=== PATIENT | male | born 1945 | race Caucasian/White ===

== ENCOUNTER 2017-08-02 05:24 | Inpatient (IN) | payer BC, MEDICARE ==
[~2017-08-02 05:24] MED LIST: LACTATED RINGER'S 1,000 ML IV*
[2017-08-02] MEDS: CEFAZOLIN 2 GM/50 ML (PMX) 50 ML IVPB (06:17)
[2017-08-02] MEDS ORDERED: GELATIN SIZE 100 SPONGE (06:56)
[2017-08-02] MEDS ORDERED: THROMBIN 5000 UNIT VIAL (06:56)
[2017-08-02] MEDS ORDERED: EPHEDrine SULFATE 50 MG/5 ML SYG (07:00)
[2017-08-02] MEDS ORDERED: PROPOFOL 200 MG INJ (07:00)
[2017-08-02] MEDS ORDERED: ESMOLOL 100 MG INJ (07:00)
[2017-08-02] MEDS ORDERED: CEFAZOLIN 1 GM INJ (07:00)
[2017-08-02] MEDS ORDERED: PROPOFOL 20 ML (07:18)
[2017-08-02] MEDS ORDERED: ROCURONIUM 50 MG INJ (07:18)
[2017-08-02] MEDS ORDERED: SUCCINYLCHOLINE CHLORIDE 100 MG/5 ML SYG IV (07:18)
[2017-08-02] MEDS ORDERED: HYDROmorphONE 2 MG/ML SYG (07:18)
[2017-08-02] MEDS ORDERED: PHENYLephrine (100 MCG/ML) 5ML SYG (07:30)
[2017-08-02] MEDS ORDERED: VASOPRESSIN 20 UNITS INJ (07:31)
[2017-08-02] MEDS ORDERED: hydrALAzine 20 MG INJ (08:01)
[2017-08-02] MEDS ORDERED: LABETALOL HCL 20MG INJ (08:04)
[2017-08-02] MEDS ORDERED: DEXAMETHASONE 4 MG/ML 1 ML INJ (08:25)
[2017-08-02] MEDS ORDERED: ONDANSETRON 4 MG INJ (08:25)
[2017-08-02] MEDS: POLYMYXIN/BACITRACIN 1L IRRIG (09:14)
[2017-08-02] MEDS: BUPIVACAINE 0.25% (MPF) 30 ML INJ (09:14)
[2017-08-02] MEDS ORDERED: HYDROmorphONE (0.2 MG/ML) 10ML SYG IV (10:30)
[2017-08-02] MEDS ORDERED: hydrALAzine 20 MG INJ IV (10:30)
[2017-08-02] MEDS ORDERED: MEPERIDINE 25 MG INJ IV (10:30)
[2017-08-02] MEDS ORDERED: LABETALOL HCL 20MG INJ IV (10:30)
[2017-08-02] MEDS ORDERED: DIPHENHYDRAMINE 50 MG INJ IV (10:30)
[2017-08-02] MEDS ORDERED: SUGAMMADEX SODIUM 200 MG/2 ML VIAL IV (10:34)
[2017-08-02] MEDS ORDERED: ACETAMINOPHEN 325 MG TAB PO (11:30)
[2017-08-02] MEDS ORDERED: AL HYDROX/MG HYDROX/SIMETH 30 ML CUP PO (11:30)
[2017-08-02] MEDS ORDERED: ZOLPIDEM 5 MG TAB PO (11:30)
[2017-08-02] MEDS ORDERED: PROCHLORPERAZINE 10 MG TAB PO (11:30)
[2017-08-02] MEDS ORDERED: CEPASTAT LOZENGE MT (11:30)
[2017-08-02] MEDS ORDERED: DIAZEPAM 5 MG TAB PO (11:30)
[2017-08-02] MEDS ORDERED: NACL 0.9% 3 ML SYG IV (11:30)
[2017-08-02] MEDS ORDERED: ONDANSETRON 4 MG INJ IV (11:30)
[2017-08-02] MEDS ORDERED: NALOXONE (0.4 MG/ML) INJ IV (11:30)
[2017-08-02] MEDS ORDERED: TRIMETHOBENZAMIDE 100 MG/ML VIAL IM (11:30)
[2017-08-02] MEDS ORDERED: DIAZEPAM 5 MG/ML SYG IM (11:30)
[2017-08-02] MEDS ORDERED: BETHANECHOL 25 MG TAB PO (11:30)
[2017-08-02] MEDS: HYDROmorphONE (0.2 MG/ML) 10ML SYG IV ×3 (11:40→12:02)
[2017-08-02] MEDS: CEFAZOLIN 1 GM/50 ML (PMX) 50 ML IVPB ×2 (11:53→20:35)
[2017-08-02] MEDS: DEXTROSE 5%-0.45% NACL 1,000 ML IV ×2 (11:54→22:43)
[2017-08-02] MEDS: HYDROmorphONE 0.2 MG/ML PCA IV (12:05)
[2017-08-02] MEDS: ONDANSETRON 4 MG INJ IV (12:17)
[2017-08-02 13:47] LABS: TROPONIN-I 0.021 ng/ml (0.000-0.120)
[2017-08-02] MEDS: RANITIDINE 150 MG TAB PO (20:33)
[2017-08-02] MEDS: ATORVASTATIN 40 MG TAB PO (20:33)
[2017-08-03] MEDS: CEFAZOLIN 1 GM/50 ML (PMX) 50 ML IVPB ×2 (03:29→09:18)
[2017-08-03 03:45] LABS: ADD MAN DIFF? NO
[2017-08-03 04:06] LABS: ABNORMAL IP MESSAGE 1; BASOPHILS % 0.1 % (0.0-2.0); HEMATOCRIT 35.1 % (42.0-52.0); LYMPHOCYTES # 0.6 10^3/ul (0.8-2.9); LYMPHOCYTES % 4.6 % (15.0-51.0); MEAN CORPUSCULAR HEMOGLOBIN 32.4 pg (29.0-33.0); MEAN CORPUSCULAR HGB CONC 34.2 g/dl (32.0-37.0); MEAN CORPUSCULAR VOLUME 94.9 fl (82.0-101.0); MEAN PLATELET VOLUME 10.1 fl (7.4-10.4); MONOCYTES % 7.7 % (0.0-11.0); NEUTROPHIL # 10.8 10^3/ul (1.6-7.5); PLATELET COUNT 171 10^3/UL (140-415); POSITIVE DIFF @See below; RED CELL DISTRIBUTION WIDTH 12.2 % (11.5-14.5)
[2017-08-03 04:06] LABS: WHITE BLOOD COUNT 12.4 10^3/ul (4.8-10.8)
[2017-08-03 04:10] LABS: ANION GAP 12 (8-16); BLOOD UREA NITROGEN 19 mg/dl (7-20); CALCIUM 8.1 mg/dl (8.4-10.2); CARBON DIOXIDE 28 mmol/L (21-31); CHLORIDE 105 mmol/L (97-110); CREATININE 0.91 mg/dl (0.61-1.24); GLUCOSE 140 mg/dl (70-220); POTASSIUM 4.1 mmol/L (3.5-5.1); SODIUM 141 mmol/L (135-144)
[2017-08-03] MEDS: BETHANECHOL 25 MG TAB PO (09:18)
[2017-08-03] MEDS: FERROUS SULFATE (EC) 325 MG TAB PO ×3 (09:18→21:29)
[2017-08-03] MEDS: RANITIDINE 150 MG TAB PO ×2 (09:18→21:29)
[2017-08-03] MEDS: ASCORBIC ACID 500 MG TAB PO ×2 (09:18→21:29)
[2017-08-03] MEDS: DOCUSATE SODIUM 100 MG CAP PO ×2 (09:18→21:28)
[2017-08-03 09:28] LABS: TROPONIN-I < 0.012 ng/ml (0.000-0.120)
[2017-08-03] MEDS: HYDROCODONE/APAP (5/325) TAB PO ×2 (10:39→14:37)
[2017-08-03 14:47] LABS: ADD UMIC YES; UR ASCORBIC ACID NEGATIVE (NEGATIVE); UR BILIRUBIN (Dip) NEGATIVE (NEGATIVE); UR BLOOD (Dip) NEGATIVE (NEGATIVE); UR CLARITY CLEAR (CLEAR); UR COLOR YELLOW (YELLOW); UR GLUCOSE (Dip) 1+ mg/dL (NEGATIVE); UR KETONES (Dip) NEGATIVE (NEGATIVE); UR LEUKOCYTE ESTERASE (Dip) TRACE Leu/ul (NEGATIVE); UR NITRITE (Dip) NEGATIVE (NEGATIVE); UR RBC 16 /HPF (0-5); UR SPECIFIC GRAVITY (Dip) 1.015 (1.003-1.030); UR TOTAL PROTEIN (Dip) NEGATIVE (NEGATIVE); UR UROBILINOGEN (Dip) NEGATIVE (NEGATIVE); UR WBC 3 /HPF (0-5)
[2017-08-03] MEDS: ATORVASTATIN 40 MG TAB PO (21:29)
[2017-08-04] MEDS: HYDROCODONE/APAP (5/325) TAB PO ×2 (01:16→12:41)
[2017-08-04] MEDS: DIPHENHYDRAMINE 50 MG CAP PO (01:16)
[2017-08-04] MEDS: RANITIDINE 150 MG TAB PO (09:00)
[2017-08-04] MEDS: FERROUS SULFATE (EC) 325 MG TAB PO ×2 (09:00→12:41)
[2017-08-04] MEDS: ASCORBIC ACID 500 MG TAB PO (09:01)
[2017-08-04] MEDS: DOCUSATE SODIUM 100 MG CAP PO (09:01)
== END 2017-08-04 14:36 | disposition home or self-care (01) | DRG 516 ==
LOC: REC 05:24 → ICU 17:55 → MS1 08-03 17:08
PROVIDERS: Orthopaedic Surgery
PROC: 01NB0ZZ Release Lumbar Nerve, Open Approach (ICD-10-PCS; principal; 2017-08-02 07:00)
PROC: 00U20KZ Supplement Dura Mater with Nonautologous Tissue Substitute, Open Approach (ICD-10-PCS; 2017-08-02 07:00)
DX: M48.061 Spinal stenosis, lumbar region without neurogenic claudication (principal); G97.41 Accidental puncture or laceration of dura during a procedure; I25.10 Atherosclerotic heart disease of native coronary artery without angina pectoris; Z95.5 Presence of coronary angioplasty implant and graft; Z79.82 Long term (current) use of aspirin; E78.00 Pure hypercholesterolemia, unspecified; Y83.8 Other surgical procedures as the cause of abnormal reaction of the patient, or of later complication, without mention of misadventure at the time of the procedure; Y92.234 Operating room of hospital as the place of occurrence of the external cause
CPT/HCPCS: 72020; 80048; 81001; 84484; 85025; 86850; 86900; 86901; 86920; 87086; 93005; 93306; 97110; 97116; 97161; 97530